=== PATIENT | male | born 1980 | race African-American/Black ===

== ENCOUNTER 2019-08-09 18:00 | Inpatient (IN) ==
[2019-08-09 18:41] LABS: Basophils % 0.2 % (0.0-0.8); Eosinophils % 0.2 % (0.00-10.9); Hemoglobin 15.6 GM/DL (14.0-18.0); Immature Granulocytes % 0.5 %; Immature Granulocytes Absolute 0.08 #; Lymphocytes # 2.4 10*3/uL (1.4-4.0); Lymphocytes % 13.7 % (21.2-54.2); Mean Corpuscular HGB Conc 33.9 GM/DL (32-36); Mean Corpuscular Volume 95.2 FL (87-102); Monocytes % 9.5 % (1.7-12.7); Neutrophils % 75.9 % (38.7-73.9); Platelet Count 200 T/CUMM (130-400); Red Blood Count 4.83 MC/CUMM (3.8-5.5); Red Cell Distribution Width 14.9 % (9.3-17.3); White Blood Count 17.5 T/CUMM (4-12)
[2019-08-09 19:12] LABS: Albumin 4.4 G/DL (3.4-5.0); Bilirubin,Total 1.4 MG/DL (0.2-1.0); Calcium 9.6 MG/DL (8.5-10.1); Osmolality,Calculated 283.5 MOS/KG (273-304); Uric Acid 7.2 MG/DL (3.5-7.2)
[2019-08-09] MEDS ORDERED: methylPREDNISolone SOD SUC 125 MG/2 ML VIAL IV STA (19:13)
[2019-08-09] MEDS ORDERED: hydrALAZINE 20 MG/1 ML VIAL IV STA (19:24)
[2019-08-09] MEDS ORDERED: CLINDAMYCIN INJ 900 MG in PREMIX 1 EACH IV STA (19:38)
[2019-08-09 19:49] LABS: INR 1.1; PT Patient Result 11.5 SECS (9.6-12.2)
[2019-08-09 20:04] LABS: Alanine Aminotransferase 20 U/L (16-61); Albumin 4.2 G/DL (3.4-5.0); Alkaline Phosphatase 73 U/L (45-117); Aspartate Amino Transferase 16 U/L (0-37); Blood Urea Nitrogen 26 MG/DL (7-18); Calcium 9.6 MG/DL (8.5-10.1); Estimated Glom Filtration Rate 34 ML/MIN; Glucose 140 MG/DL (74-106); Osmolality,Calculated 281.7 MOS/KG (273-304); Troponin I < 0.015 NG/ML (0.00-0.045); Uric Acid 7.1 MG/DL (3.5-7.2)
[2019-08-09 20:50] LABS: Apearance,Urine CLEAR (Clear); Bacteria,Urine Occasional /HPF (Few); Bilirubin,Urine Negative (Negative); Blood, Urine Negative (Negative); Glucose,Urine (UA) Negative (Negative); Hyaline Casts,Urine 1 /LPF (0-3); Ketones,Urine Negative (Negative); Nitrite,Urine Negative (Negative); Protein,Urine Negative; RBC,Urine 1 /HPF (0-4); Urine Color Yellow (Yellow); Urine Specific Gravity 1.006 (1.001-1.035); Urine Urobilinogen < 2.0 EU/DL (0.2-1.0); WBC,Urine 1 /HPF (0-6)
[2019-08-10] MEDS ORDERED: ONDANSETRON 4 MG/2 ML VIAL IV PRN (00:05)
[2019-08-10] MEDS: SODIUM CHLORIDE 0.9% 1,000 ML IV SCH (02:32)
[2019-08-10] MEDS: VANCOMYCIN INJ 1,000 MG in SODIUM CHLORIDE 0.9% 250 ML IV SCH (02:34)
[2019-08-10 05:10] LABS: Basophils % 0.1 % (0.0-0.8); Hematocrit 44.4 VOL% (42.0-52.0); Hemoglobin 15.3 GM/DL (14.0-18.0); Immature Granulocytes % 0.4 %; Immature Granulocytes Absolute 0.05 #; Lymphocytes # 0.6 10*3/uL (1.4-4.0); Lymphocytes % 5.1 % (21.2-54.2); Mean Corpuscular HGB Conc 34.5 GM/DL (32-36); Mean Corpuscular Volume 94.9 FL (87-102); Mean Platelet Volume 10.3 FL (9.6-12.0); Monocytes % 1.3 % (1.7-12.7); Neutrophils % 93.1 % (38.7-73.9); Platelet Count 215 T/CUMM (130-400); Red Blood Count 4.68 MC/CUMM (3.8-5.5); White Blood Count 11.9 T/CUMM (4-12)
[2019-08-10 05:31] LABS: Hypochromasia Slight; Lymphocytes 10 % (20-55); Ovalocytes Slight; Platelet Estimate Adequate; Segmented Neutrophils 89 % (50-85); Total Cells Counted 100
[2019-08-10 05:39] LABS: Calcium 9.2 MG/DL (8.5-10.1); Osmolality,Calculated 279.8 MOS/KG (273-304)
[2019-08-10] MEDS: amLODIPine 10 MG TABLET PO SCH (06:03)
[2019-08-10] MEDS ORDERED: predniSONE 20 MG TABLET PO SCH (09:00)
[2019-08-10] MEDS: PANTOPRAZOLE 40 MG TABLET PO SCH (09:01)
[2019-08-10 13:49] LABS: HIV Antigen/Antibody Result Nonreactive (Nonreactive); Hepatitis C Virus Ab Quant < 0.02 Index; Hepatitis C Virus Ab Result Negative (Negative)
[2019-08-10 14:18] LABS: Hepatitis B Surface Ag Result Negative (Negative)
[2019-08-10] MEDS: hydrALAZINE 25 MG TABLET PO SCH (21:15)
[2019-08-10 21:19] LABS: Lymphocytes,Synovial Fluid 2 %; Neutrophils,Synovial Fluid 97 %
[2019-08-11] MEDS: SODIUM CHLORIDE 0.9% 1,000 ML IV SCH ×3 (00:04→19:00)
[2019-08-11] MEDS: VANCOMYCIN INJ 1,000 MG in SODIUM CHLORIDE 0.9% 250 ML IV SCH ×3 (00:30→20:42)
[2019-08-11 05:56] LABS: Basophils % 0.2 % (0.0-0.8); Eosinophils % 0.2 % (0.00-10.9); Hematocrit 41.4 VOL% (42.0-52.0); Immature Granulocytes % 0.4 %; Immature Granulocytes Absolute 0.06 #; Lymphocytes # 2.2 10*3/uL (1.4-4.0); Mean Corpuscular HGB Conc 33.8 GM/DL (32-36); Mean Corpuscular Volume 96.7 FL (87-102); Mean Platelet Volume 10.4 FL (9.6-12.0); Monocytes % 7.4 % (1.7-12.7); Neutrophils % 77.8 % (38.7-73.9); Platelet Count 183 T/CUMM (130-400); Red Blood Count 4.28 MC/CUMM (3.8-5.5); Red Cell Distribution Width 15.2 % (9.3-17.3); White Blood Count 15.5 T/CUMM (4-12)
[2019-08-11 06:26] LABS: Calcium 8.9 MG/DL (8.5-10.1); Osmolality,Calculated 287.8 MOS/KG (273-304)
[2019-08-11] MEDS ORDERED: BUPIVACAINE 0.5% 50 ML VIAL ONE (07:34)
[2019-08-11] MEDS: hydrALAZINE 25 MG TABLET PO SCH ×2 (07:54→20:40)
[2019-08-11] MEDS: amLODIPine 10 MG TABLET PO SCH (07:54)
[2019-08-11] MEDS ORDERED: LIDOCAINE 2%/EPI 20 ML VIAL ONE (09:05)
[2019-08-11] MEDS ORDERED: PROPOFOL 200 MG/20 ML VIAL IV ONE (09:40)
[2019-08-11] MEDS ORDERED: MIDAZOLAM 2 MG/2 ML VIAL ONE (09:41)
[2019-08-11] MEDS ORDERED: DEXAMETHASONE 4 MG/1 ML VIAL ONE (09:41)
[2019-08-11] MEDS ORDERED: SEVOFLURANE 1 UNIT/15 MINUTE INH ONE (09:41)
[2019-08-11] MEDS ORDERED: fentaNYL 100 MCG/2 ML VIAL ONE (09:41)
[2019-08-11] MEDS ORDERED: ONDANSETRON 4 MG/2 ML VIAL ONE (09:41)
[2019-08-11] MEDS ORDERED: LACTATED RINGERS 1,000 ML IV ONE (09:42)
[2019-08-11] MEDS ORDERED: LIDOCAINE 2% 5 ML VIAL ONE (09:42)
[2019-08-11] MEDS ORDERED: PHENYLEPHRINE 10 MG/1 ML VIAL IV ONE (09:42)
[2019-08-11] MEDS ORDERED: ONDANSETRON 4 MG/2 ML VIAL IV PRN (09:44)
[2019-08-11] MEDS: HYDROmorphone 2 MG/1 ML VIAL IV PRN ×2 (09:47→09:59)
[2019-08-11] MEDS ORDERED: MAGNESIUM HYDROXIDE SUSP 30 ML UDCUP PO PRN (10:00)
[2019-08-11] MEDS: PANTOPRAZOLE 40 MG TABLET PO SCH (11:41)
[2019-08-11] MEDS: PIPERACILLIN/TAZOBACTAM 3,375 MG in SODIUM CHLORIDE 0.9% 100 ML IV SCH ×2 (14:24→21:52)
[2019-08-11] MEDS: MORPHINE 4 MG/1 ML VIAL IV PRN ×2 (14:24→20:34)
[2019-08-11] MEDS ORDERED: ZALEPLON 5 MG CAPSULE PO PRN (15:58)
[2019-08-11] MEDS ORDERED: LABETALOL 100 MG/20 ML VIAL IV PRN (17:15)
[2019-08-12] MEDS: SODIUM CHLORIDE 0.9% 1,000 ML IV SCH (03:00)
[2019-08-12] MEDS: MORPHINE 4 MG/1 ML VIAL IV PRN ×5 (04:59→21:46)
[2019-08-12] MEDS: PIPERACILLIN/TAZOBACTAM 3,375 MG in SODIUM CHLORIDE 0.9% 100 ML IV SCH ×3 (05:05→22:56)
[2019-08-12 05:32] LABS: Basophils % 0.1 % (0.0-0.8); Hematocrit 43.2 VOL% (42.0-52.0); Hemoglobin 14.6 GM/DL (14.0-18.0); Immature Granulocytes % 0.6 %; Immature Granulocytes Absolute 0.09 #; Lymphocytes % 13.9 % (21.2-54.2); Mean Corpuscular HGB Conc 33.8 GM/DL (32-36); Mean Corpuscular Volume 96.2 FL (87-102); Mean Platelet Volume 10.1 FL (9.6-12.0); Monocytes % 6.5 % (1.7-12.7); Neutrophils % 78.9 % (38.7-73.9); Platelet Count 211 T/CUMM (130-400); Red Blood Count 4.49 MC/CUMM (3.8-5.5); Red Cell Distribution Width 14.8 % (9.3-17.3); White Blood Count 14.7 T/CUMM (4-12)
[2019-08-12 05:46] LABS: Calcium 8.8 MG/DL (8.5-10.1); Osmolality,Calculated 276.5 MOS/KG (273-304)
[2019-08-12] MEDS: ENOXAPARIN 40 MG/0.4 ML SYRINGE SUBCUT SCH (08:55)
[2019-08-12] MEDS: VANCOMYCIN INJ 1,000 MG in SODIUM CHLORIDE 0.9% 250 ML IV SCH ×2 (08:55→21:49)
[2019-08-12] MEDS: hydrALAZINE 25 MG TABLET PO SCH (08:56)
[2019-08-12] MEDS: amLODIPine 10 MG TABLET PO SCH (08:57)
[2019-08-12] MEDS: PANTOPRAZOLE 40 MG TABLET PO SCH (08:57)
[2019-08-13] MEDS: MORPHINE 4 MG/1 ML VIAL IV PRN ×5 (05:41→22:19)
[2019-08-13] MEDS: PIPERACILLIN/TAZOBACTAM 3,375 MG in SODIUM CHLORIDE 0.9% 100 ML IV SCH ×2 (05:43→12:24)
[2019-08-13 06:28] LABS: Basophils % 0.2 % (0.0-0.8); Eosinophils # 0.1 10*3/uL (0.0-0.87); Eosinophils % 0.8 % (0.00-10.9); Hematocrit 43.9 VOL% (42.0-52.0); Hemoglobin 14.8 GM/DL (14.0-18.0); Immature Granulocytes % 0.4 %; Immature Granulocytes Absolute 0.04 #; Lymphocytes # 2.8 10*3/uL (1.4-4.0); Lymphocytes % 28.6 % (21.2-54.2); Mean Corpuscular HGB Conc 33.7 GM/DL (32-36); Mean Corpuscular Volume 95.2 FL (87-102); Mean Platelet Volume 9.9 FL (9.6-12.0); Monocytes % 8.1 % (1.7-12.7); Neutrophils % 61.9 % (38.7-73.9); Platelet Count 217 T/CUMM (130-400); Red Blood Count 4.61 MC/CUMM (3.8-5.5); Red Cell Distribution Width 14.6 % (9.3-17.3); White Blood Count 9.8 T/CUMM (4-12)
[2019-08-13 06:51] LABS: Calcium 8.8 MG/DL (8.5-10.1); Osmolality,Calculated 276.5 MOS/KG (273-304)
[2019-08-13] MEDS: amLODIPine 10 MG TABLET PO SCH (08:42)
[2019-08-13] MEDS: PANTOPRAZOLE 40 MG TABLET PO SCH (08:42)
[2019-08-13] MEDS: VANCOMYCIN INJ 1,000 MG in SODIUM CHLORIDE 0.9% 250 ML IV SCH ×2 (10:43→20:06)
[2019-08-13] MEDS: ENOXAPARIN 40 MG/0.4 ML SYRINGE SUBCUT SCH (10:44)
[2019-08-13] MEDS: DOXYCYCLINE HYCLATE 100 MG CAPSULE PO SCH (20:06)
[2019-08-14] MEDS: MORPHINE 4 MG/1 ML VIAL IV PRN ×2 (01:44→12:15)
[2019-08-14] MEDS: VANCOMYCIN INJ 1,000 MG in SODIUM CHLORIDE 0.9% 250 ML IV SCH (09:09)
[2019-08-14] MEDS: DOXYCYCLINE HYCLATE 100 MG CAPSULE PO SCH (09:12)
[2019-08-14] MEDS: amLODIPine 10 MG TABLET PO SCH (09:12)
[2019-08-14] MEDS: PANTOPRAZOLE 40 MG TABLET PO SCH (09:12)
[2019-08-14] MEDS: ENOXAPARIN 40 MG/0.4 ML SYRINGE SUBCUT SCH (09:15)
[2019-08-14 11:29] VITALS: BP 164/98
== END 2019-08-14 13:55 | disposition home or self-care (01) | DRG 501 ==
LOC: N.ED 18:00 → N.EDINP 08-10 00:05 → N.2E 08-10 01:17
PROVIDERS: ADMIT Hospitalist; ATTEND Hospitalist

== ENCOUNTER 2020-01-05 11:17 | Inpatient (IN) ==
[2020-01-05] MEDS ORDERED: hydrALAZINE 20 MG/1 ML VIAL IV STA (11:38)
[2020-01-05 12:06] LABS: Basophils % 0.2 % (0.0-0.8); Eosinophils # 0.1 10*3/uL (0.0-0.87); Eosinophils % 1.2 % (0.00-10.9); Hematocrit 42.4 VOL% (42.0-52.0); Hemoglobin 14.8 GM/DL (14.0-18.0); Immature Granulocytes % 0.2 %; Immature Granulocytes Absolute 0.02 #; Lymphocytes # 1.7 10*3/uL (1.4-4.0); Lymphocytes % 17.9 % (21.2-54.2); Mean Corpuscular HGB Conc 34.9 GM/DL (32-36); Mean Platelet Volume 9.6 FL (9.6-12.0); Monocytes % 7.7 % (1.7-12.7); Neutrophils % 72.8 % (38.7-73.9); Platelet Count 156 T/CUMM (130-400); Red Blood Count 4.56 MC/CUMM (3.8-5.5); Red Cell Distribution Width 14.8 % (9.3-17.3); White Blood Count 9.7 T/CUMM (4-12)
[2020-01-05 12:35] LABS: Alanine Aminotransferase 31 U/L (16-61); Albumin 3.8 G/DL (3.4-5.0); Alkaline Phosphatase 66 U/L (45-117); Aspartate Amino Transferase 27 U/L (0-37); Blood Urea Nitrogen 19 MG/DL (7-18); Calcium 8.6 MG/DL (8.5-10.1); Estimated Glom Filtration Rate 98 ML/MIN; Glucose 89 MG/DL (74-106); Osmolality,Calculated 277.5 MOS/KG (273-304); Troponin I < 0.015 NG/ML (0.00-0.045)
[2020-01-05 12:48] LABS: PT Patient Result 10.8 SECS (9.6-12.2)
[2020-01-05] MEDS ORDERED: METOPROLOL TARTRATE 5 MG/5 ML VIAL IV STA (12:51)
[2020-01-05 13:37] LABS: Apearance,Urine CLEAR (Clear); Bilirubin,Urine Negative (Negative); Blood, Urine Negative (Negative); Glucose,Urine (UA) 50 mg/dL (Negative); Hyaline Casts,Urine 3 /LPF (0-3); Ketones,Urine Negative (Negative); Mucus,Urine Occasional /LPF (Occasional); Nitrite,Urine Negative (Negative); Protein,Urine 30 MG/DL; RBC,Urine 8 /HPF (0-4); Urine Color Yellow (Yellow); Urine Specific Gravity 1.023 (1.001-1.035); WBC,Urine <1 /HPF (0-6)
[2020-01-05 13:39] LABS: Barbiturates Screen,Urine Negative (Negative); Benzodiazepines Screen,Urine Negative (Negative); Cannabinoid Screen,Urine Positive (Negative); Opiate Screen,Urine Negative (Negative); Phencyclidine Screen,Urine Negative (Negative)
[2020-01-05] MEDS ORDERED: ONDANSETRON 4 MG/2 ML VIAL IV PRN (16:13)
[2020-01-05] MEDS ORDERED: traZODone 50 MG TABLET PO PRN (16:13)
[2020-01-05] MEDS: niCARdipine INJ 25 MG in SODIUM CHLORIDE 0.9% 240 ML IV PRN ×2 (16:16→20:12)
[2020-01-05] MEDS: SPIRONOLACTONE 50 MG TABLET PO SCH (16:26)
[2020-01-05] MEDS: ACETAMINOPHEN 325 MG TABLET PO PRN ×2 (18:10→20:33)
[2020-01-06] MEDS: niCARdipine INJ 25 MG in SODIUM CHLORIDE 0.9% 240 ML IV PRN ×3 (00:22→12:14)
[2020-01-06 06:29] LABS: Calcium 9.3 MG/DL (8.5-10.1); Osmolality,Calculated 270.1 MOS/KG (273-304)
[2020-01-06] MEDS: PANTOPRAZOLE 40 MG TABLET PO SCH (08:29)
[2020-01-06] MEDS: amLODIPine 10 MG TABLET PO SCH (08:29)
[2020-01-06] MEDS: SPIRONOLACTONE 50 MG TABLET PO SCH (08:29)
[2020-01-06] MEDS: hydrALAZINE 20 MG/1 ML VIAL IV PRN (13:23)
[2020-01-06] MEDS: niCARdipine INJ 50 MG in SODIUM CHLORIDE 0.9% 480 ML IV PRN ×2 (14:32→20:40)
[2020-01-06] MEDS: ACETAMINOPHEN 325 MG TABLET PO PRN (15:09)
[2020-01-06] MEDS: hydrALAZINE 25 MG TABLET PO SCH ×2 (15:09→20:40)
[2020-01-06] MEDS: MUPIROCIN 2% OINT 22 GM TUBE TOP SCH ×2 (15:09→20:40)
[2020-01-07] MEDS: SPIRONOLACTONE 50 MG TABLET PO SCH (08:26)
[2020-01-07] MEDS: PANTOPRAZOLE 40 MG TABLET PO SCH (08:27)
[2020-01-07] MEDS: amLODIPine 10 MG TABLET PO SCH (08:27)
[2020-01-07] MEDS: hydrALAZINE 25 MG TABLET PO SCH ×3 (08:27→21:03)
[2020-01-07 08:29] LABS: Basophils % 0.2 % (0.0-0.8); Eosinophils # 0.1 10*3/uL (0.0-0.87); Eosinophils % 0.7 % (0.00-10.9); Hematocrit 48.9 VOL% (42.0-52.0); Hemoglobin 16.3 GM/DL (14.0-18.0); Immature Granulocytes % 0.4 %; Immature Granulocytes Absolute 0.04 #; Lymphocytes # 1.6 10*3/uL (1.4-4.0); Lymphocytes % 14.1 % (21.2-54.2); Mean Corpuscular HGB Conc 33.3 GM/DL (32-36); Mean Platelet Volume 9.5 FL (9.6-12.0); Monocytes % 5.7 % (1.7-12.7); Neutrophils % 78.9 % (38.7-73.9); Platelet Count 179 T/CUMM (130-400); Red Blood Count 5.15 MC/CUMM (3.8-5.5); Red Cell Distribution Width 14.9 % (9.3-17.3)
[2020-01-07 08:56] LABS: Calcium 9.4 MG/DL (8.5-10.1); Osmolality,Calculated 276.7 MOS/KG (273-304)
[2020-01-07 09:07] LABS: Anisocytosis Slight; Macrocytosis 1+; Platelet Estimate Normal
[2020-01-07] MEDS: MUPIROCIN 2% OINT 22 GM TUBE TOP SCH ×3 (09:43→21:04)
[2020-01-07] MEDS: hydrALAZINE 20 MG/1 ML VIAL IV PRN (13:42)
[2020-01-07] MEDS: METOPROLOL TARTRATE 25 MG TABLET PO SCH (21:03)
[2020-01-08 04:16] LABS: Basophils % 0.2 % (0.0-0.8); Eosinophils # 0.2 10*3/uL (0.0-0.87); Eosinophils % 1.3 % (0.00-10.9); Hemoglobin 15.3 GM/DL (14.0-18.0); Immature Granulocytes % 0.4 %; Immature Granulocytes Absolute 0.04 #; Lymphocytes # 2.1 10*3/uL (1.4-4.0); Lymphocytes % 18.4 % (21.2-54.2); Mean Corpuscular Volume 93.6 FL (87-102); Mean Platelet Volume 9.8 FL (9.6-12.0); Monocytes % 6.9 % (1.7-12.7); Neutrophils % 72.8 % (38.7-73.9); Platelet Count 191 T/CUMM (130-400); Red Blood Count 4.81 MC/CUMM (3.8-5.5); Red Cell Distribution Width 14.8 % (9.3-17.3); White Blood Count 11.1 T/CUMM (4-12)
[2020-01-08 04:37] LABS: Calcium 9.3 MG/DL (8.5-10.1); Osmolality,Calculated 277.8 MOS/KG (273-304)
[2020-01-08] MEDS: amLODIPine 10 MG TABLET PO SCH (08:51)
[2020-01-08] MEDS: SPIRONOLACTONE 50 MG TABLET PO SCH (08:51)
[2020-01-08] MEDS: METOPROLOL TARTRATE 25 MG TABLET PO SCH (08:51)
[2020-01-08] MEDS: PANTOPRAZOLE 40 MG TABLET PO SCH (08:52)
[2020-01-08] MEDS: hydrALAZINE 25 MG TABLET PO SCH (08:52)
[2020-01-08] MEDS: MUPIROCIN 2% OINT 22 GM TUBE TOP SCH (08:53)
[2020-01-08] MEDS ORDERED: SODIUM CHLORIDE 0.9% 500 ML IV ONE (11:03)
[2020-01-08] MEDS ORDERED: hydrALAZINE 25 MG TABLET PO ONE (11:06)
[2020-01-08] MEDS ORDERED: NICOTINE 21 MG/24 HR PATCH TRANSDERM PRN (11:24)
[2020-01-08 11:32] LABS: Risk Ratio 2.08; Thyroid Stimulating Hormone 0.676 uIU/ml (0.358-3.74); VLDL CHOLESTEROL 13.4 MG/DL
[2020-01-08 11:37] VITALS: BP 176/107
== END 2020-01-08 13:12 | disposition home or self-care (01) | DRG 304 ==
LOC: N.ED 11:17 → SUATTDRO 13:58 → N.EDINP 13:58 → N.CC 14:24 → N.TELEN 01-07 11:40
PROVIDERS: ADMIT Internal Medicine; ATTEND Internal Medicine

== ENCOUNTER 2020-01-09 14:36 | Inpatient (IN) ==
[2020-01-09] MEDS ORDERED: niCARdipine 25 MG/10 ML VIAL IV ONE (15:15)
[2020-01-09 15:21] LABS: Basophils % 0.1 % (0.0-0.8); Eosinophils # 0.1 10*3/uL (0.0-0.87); Eosinophils % 1.4 % (0.00-10.9); Hematocrit 38.8 VOL% (42.0-52.0); Hemoglobin 13.4 GM/DL (14.0-18.0); Immature Granulocytes % 0.3 %; Immature Granulocytes Absolute 0.03 #; Lymphocytes # 1.9 10*3/uL (1.4-4.0); Lymphocytes % 18.9 % (21.2-54.2); Mean Corpuscular HGB Conc 34.5 GM/DL (32-36); Mean Platelet Volume 9.4 FL (9.6-12.0); Monocytes % 8.6 % (1.7-12.7); Neutrophils % 70.7 % (38.7-73.9); Platelet Count 184 T/CUMM (130-400); Red Blood Count 4.17 MC/CUMM (3.8-5.5); Red Cell Distribution Width 14.3 % (9.3-17.3); White Blood Count 10.3 T/CUMM (4-12)
[2020-01-09] MEDS: niCARdipine INJ 25 MG in SODIUM CHLORIDE 0.9% 240 ML IV PRN ×2 (15:24→18:06)
[2020-01-09 15:41] LABS: Calcium 9.1 MG/DL (8.5-10.1)
[2020-01-09] MEDS ORDERED: NICOTINE 21 MG/24 HR PATCH TRANSDERM PRN (15:42)
[2020-01-09] MEDS ORDERED: ACETAMINOPHEN 325 MG TABLET PO PRN (15:42)
[2020-01-09] MEDS ORDERED: ONDANSETRON 4 MG/2 ML VIAL IV PRN (15:42)
[2020-01-09 16:06] LABS: Risk Ratio 2.19; VLDL CHOLESTEROL 17.4 MG/DL
[2020-01-09] MEDS ORDERED: INFLUENZA VIRUS VACCINE 0.5 ML SYRINGE IM ONE (17:11)
[2020-01-09] MEDS ORDERED: OXYMETAZOLINE 0.05% NASAL SPRAY 15 ML BOTTLE BOTH NARES PRN (19:00)
[2020-01-09] MEDS ORDERED: niCARdipine INJ 50 MG in SODIUM CHLORIDE 0.9% 480 ML IV PRN (19:41)
[2020-01-09] MEDS: METOPROLOL TARTRATE 25 MG TABLET PO SCH (21:11)
[2020-01-10] MEDS ORDERED: predniSONE 50 MG TABLET PO ONE ×3 (01:00→19:00)
[2020-01-10 04:41] LABS: Basophils % 0.1 % (0.0-0.8); Eosinophils # 0.2 10*3/uL (0.0-0.87); Eosinophils % 1.2 % (0.00-10.9); Hemoglobin 12.9 GM/DL (14.0-18.0); Immature Granulocytes % 0.5 %; Immature Granulocytes Absolute 0.07 #; Lymphocytes # 1.8 10*3/uL (1.4-4.0); Lymphocytes % 12.7 % (21.2-54.2); Mean Corpuscular HGB Conc 33.1 GM/DL (32-36); Mean Corpuscular Volume 95.6 FL (87-102); Mean Platelet Volume 10.1 FL (9.6-12.0); Monocytes % 7.5 % (1.7-12.7); Platelet Count 190 T/CUMM (130-400); Red Blood Count 4.08 MC/CUMM (3.8-5.5); Red Cell Distribution Width 14.1 % (9.3-17.3); White Blood Count 13.9 T/CUMM (4-12)
[2020-01-10 05:01] LABS: Calcium 9.1 MG/DL (8.5-10.1)
[2020-01-10] MEDS: METOPROLOL TARTRATE 25 MG TABLET PO SCH (09:15)
[2020-01-10] MEDS: amLODIPine 10 MG TABLET PO SCH (09:17)
[2020-01-10] MEDS: PANTOPRAZOLE 40 MG TABLET PO SCH (09:17)
[2020-01-10] MEDS ORDERED: METOPROLOL TARTRATE 50 MG TABLET PO SCH (10:00)
[2020-01-10] MEDS: LOSARTAN 50 MG TABLET PO SCH (10:46)
[2020-01-10 10:53] LABS: Troponin I 0.023 NG/ML (0.00-0.045)
[2020-01-10 15:35] LABS: Apearance,Urine CLEAR (Clear); Bilirubin,Urine Negative (Negative); Blood, Urine Negative (Negative); Glucose,Urine (UA) 50 mg/dL (Negative); Ketones,Urine Negative (Negative); Mucus,Urine Occasional /LPF (Occasional); Nitrite,Urine Negative (Negative); Protein,Urine Negative; RBC,Urine 3 /HPF (0-4); Urine Color Yellow (Yellow); Urine Specific Gravity 1.023 (1.001-1.035); Urine Urobilinogen < 2.0 EU/DL (0.2-1.0); WBC,Urine 1 /HPF (0-6)
[2020-01-10 18:12] LABS: Barbiturates Screen,Urine Negative (Negative); Benzodiazepines Screen,Urine Negative (Negative); Cannabinoid Screen,Urine Positive (Negative); Opiate Screen,Urine Negative (Negative); Phencyclidine Screen,Urine Negative (Negative)
[2020-01-10] MEDS: METOPROLOL TARTRATE 50 MG TABLET PO SCH (20:45)
[2020-01-11] MEDS ORDERED: predniSONE 50 MG TABLET PO ONE ×4 (01:00→06:00)
[2020-01-11 05:08] LABS: Basophils % 0.1 % (0.0-0.8); Hematocrit 39.8 VOL% (42.0-52.0); Hemoglobin 13.6 GM/DL (14.0-18.0); Immature Granulocytes % 0.4 %; Immature Granulocytes Absolute 0.03 #; Lymphocytes # 0.5 10*3/uL (1.4-4.0); Lymphocytes % 6.1 % (21.2-54.2); Mean Corpuscular HGB Conc 34.2 GM/DL (32-36); Mean Corpuscular Volume 93.4 FL (87-102); Mean Platelet Volume 9.8 FL (9.6-12.0); Monocytes % 1.1 % (1.7-12.7); Neutrophils % 92.3 % (38.7-73.9); Platelet Count 223 T/CUMM (130-400); Red Blood Count 4.26 MC/CUMM (3.8-5.5); Red Cell Distribution Width 14.4 % (9.3-17.3); White Blood Count 8.4 T/CUMM (4-12)
[2020-01-11 05:28] LABS: Lymphocytes 5 % (20-55); Segmented Neutrophils 94 % (50-85); Total Cells Counted 100
[2020-01-11 05:29] LABS: Microcytosis Slight
[2020-01-11 05:33] LABS: Troponin I < 0.015 NG/ML (0.00-0.045)
[2020-01-11] MEDS ORDERED: diphenhydrAMINE CAP 50 MG CAPSULE PO ONE ×2 (06:00)
[2020-01-11] MEDS: METOPROLOL TARTRATE 50 MG TABLET PO SCH (08:25)
[2020-01-11] MEDS: amLODIPine 10 MG TABLET PO SCH (08:25)
[2020-01-11] MEDS: PANTOPRAZOLE 40 MG TABLET PO SCH (08:25)
[2020-01-11] MEDS: LOSARTAN 50 MG TABLET PO SCH (08:25)
[2020-01-11] MEDS ORDERED: SODIUM CHLORIDE 0.45% 500 ML IV ONE (09:26)
[2020-01-11 12:15] VITALS: BP 160/100
== END 2020-01-11 12:15 | disposition home or self-care (01) | DRG 305 ==
LOC: N.ED 14:36 → N.EDINP 15:35 → N.CC 16:08 → N.4E 01-10 18:53
PROVIDERS: ADMIT Internal Medicine; ATTEND Internal Medicine